=== PATIENT | female | born 1975 | race Caucasian/White ===

== ENCOUNTER 2017-09-18 08:34 | Day surgery (SDC) | payer MEDICAID, SELFPAY ==
[2017-09-18] VITALS (7 sets, daily range): BP systolic 104–141; BP diastolic 64–94; PULSE 51–70; RESP 16–18; TEMP 36.2–36.8; O2SAT 94–100; BMI 28.3
--- NOTE | 2017-09-18 02:33 | PCM.HPOB.BLA ---
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 Is patient in pain?: Yes Allergies No Known Allergies Allergy (Verified 06/18/17 08:40) Medications Rizatriptan Benzoate [Rizatriptan] 10 mg PO TID PRN PRN 07/26/16 [History Confirmed 06/18/17] Duloxetine Hcl [Cymbalta] 90 mg PO DAILY 09/13/16 [History Confirmed 06/18/17] baclofen 10 mg tablet 10 mg PO TID PRN 03/31/17 [History Confirmed 06/18/17] clonazepam 0.5 mg tablet 1 mg PO BID tab 03/31/17 [History Confirmed 06/18/17] dicyclomine 10 mg capsule 10 mg PO ACHS #60 cap 03/31/17 [Rx Confirmed 06/18/17] gabapentin 100 mg capsule 600 mg PO TID cap 03/31/17 [History Confirmed 06/18/17] ibuprofen 200 mg tablet 200 mg PO TID PRN #180 tab 03/31/17 [Rx Confirmed 06/18/17] loperamide 2 mg capsule 2 mg PO Q1-4H PRN #20 cap 03/31/17 [Rx Confirmed 06/18/17] valproic acid 250 mg capsule 250 mg PO TID 03/31/17 [History Confirmed 06/18/17] valsartan 160 mg tablet 160 mg PO QDAY 03/31/17 [History Confirmed 06/18/17] ondansetron HCl 4 mg tablet 4 mg PO Q4H 06/18/17 [History Confirmed 06/18/17] Is last menstrual period known: Yes Last Menstral Period: 05/22/17 Post menopausal: No Patient : No : No PFSH Medical History Anxiety and depression (Acute) Arthritis (Acute) Hypertension (Chronic) Surgical History History of ERCP (Acute) History of cholecystectomy (Acute) Family History Uncle Diabetes Aunt Diabetes Social History Smoking Status: Never smoker second hand exposure: No alcohol intake: never substance use type: does not use caffeine: No what type of physical activity do you participate in: none seatbelt use: always do you feel safe at home: Yes additional social history: single HPI SURGICAL CONSULT: Details: MIGUE HERNANDEZ is a 41 year old who presents for AUB- she has heavy painful periods and bleeding can last almost two weeks. She has always had this for many years and it seems to be stable, she had a normal pap smear and hasn't been on any hormonal therapy for this. ultrasound showed 5 mm lining, possible cervical polyp. she also needs a colonoscopy by dr ye. she is concerned because she doesn't have anyone to help her with transportation. Female Reproductive History Last Menstral Period: 05/22/17 Cycle Length: 21-35 Bleeding Duration: 10 Frequency of changing protection: double protection. changes few hrs Pregancy History 0 Elective abortions Hx Para Spontaneous abortions Hx # Term Pregnancies Ectopic pregnancies Hx # Pregnancies Multiple births # of living children ROS Const Constitutional: Denies poor appetite, headache(s), fever(s), increased appetite, weight gain, weight loss or fatigue Cardio Card: Denies chest pain Resp Resp: Denies dyspnea or cough GI GI: Reports as per HPI; denies vomiting, nausea, abdominal pain or constipation : Reports as per HPI; denies urinary urgency, vaginal discharge, urinary frequency, vaginal itching, vaginal odor, vaginal dryness, urinary incontinence, urinary hesitancy, difficulty urinating, painful urination or nipple discharge Skin Skin/Breast: Denies breast lump, breast pain, breast skin changes, nipple discharge or change in hair Exam Const General: cooperative, healthy appearing, comfortable, no acute distress, well developed Nutritional Appearance: average body habitus Orientation: alert [facility] Head: normal to inspection, normocephalic Neck Neck: normal visual inspection, trachea midline Thyroid: thyroid normal Resp Effort & Inspection: normal respiratory effort GI Inspection: normal to inspection, non-distended Palpation: soft, no hepatosplenomegaly Skin General: no rashes or lesions noted Assessment & Plan Problems 1. Abnormal uterine bleeding N93.9 Plan plan d and c hysteroscopy polypectomy mirena iud insertion try and coordinate with christian ye's office to have colonoscopy the same day I have discussed with the patient the risks, benefits, and alternatives of the procedure including risks of anesthesia, bleeding, infection, uterine perforation which could cause damage to bowel, bladder, or vasculature and lead to additional surgery to evaluate any complications. Medications Discontinued: pantoprazole Discontinued Reason: Order Completed 40 mg PO QAM Coding Level of Care Code Off vis,est,level 4 Diagnoses Abnormal uterine bleeding N93.9 UPDATE- I have seen the patient and performed any clinically relevant updates to the history and physical exam. Maggi Aguilar MD
[2017-09-18 09:06] LABS: Absolute Lymphocyte Count 2.56 X10^3/ul (0.83-4.51); Absolute Neutrophil Count 2.3 X10^3/uL (2.0-7.7); Basophil# 0.04 X10^3/uL; Basophil% 0.7 % (0-1); Eosinophil# 0.08 X10^3/uL; Eosinophils% 1.4 % (0-5); Hematocrit 34.1 % (37-47); Hemoglobin 11.9 g/dl (12.0-15.0); Lymphocyte # 2.56 X10^3/ul (4.0); Lymphocyte % 45.6 % (19-41); Mean Corp Hgb Conc 34.9 g/gl (32-36); Mean Corpuscular Hgb 31.6 pg (27.0-32.0); Mean Corpuscular Volume 90.5 fL (81-99); Mean Platelet Vol. 11.7 fl (6.2-12.0); Monocyte# 0.63 X10^3/uL; Monocyte% 11.2 % (0-10); Neutrophil # 2.31 X10^3/uL (2.7-7.7); Neutrophil % 41.1 % (47-70); Platelet Count 208 K/mm3 (150-450); RBC Distribution Width CV 13.6 % (11.6-14.6); RBC Distribution Width SD 43.8 fl (35.1-43.9); Red Blood Count 3.77 M/mm3 (4.2-5.4); White Blood Count 5.6 K/mm3 (4.4-11.0)
[2017-09-18 09:10] LABS: POSITIVE COUNT NO; POSITIVE DIFFERENTIAL NO; POSITIVE MORPHOLOGY NO
--- NOTE | 2017-09-18 10:24 | PCM.OPRPT ---
Problem List (1) Abnormal uterine bleeding Status: Acute Report of Operation Date of Procedure: 09/18/17 Pre-Operative Diagnosis: aub pelvic pain Post-Operative Diagnosis: same plus enodmetriosis Surgery/Procedure Performed:: d and c hysteroscopy polypectomy with myosure device and mirena IUD insertion Type of Anesthesia:: General Special Medications: iud Specimen's removed: emc Drains: none Estimated Blood Loss (mL): minimal Fluids Replaced: crystalloid Description of Procedure: Patient was taken in the operating room and was placed under general anesthesia was prepped and draped in normal sterile fashion in the dorsal lithotomy position. Bladder was drained of clear urine and SCDs were on preoperatively. Uterus was sounded and a uterine manipulator was placed after dilating. Attention was then paid to the abdominal portion of the procedure and the umbilicus was elevated with towel clamps and injected with Marcaine and after a 5 mm incision was made and the Veress needle was entered into the abdomen confirmed to be intra-abdominal with a low opening pressure of less than 5 mmHg. Abdomen was insufflated with CO2 gas and a 5 mm optical trocar was placed under direct visualization. A left lower quadrant 5 mm port placed under direct visualization. Uterus was well visualized and bilateral fallopian tubes identified and noted to be within normal limits. Small sigmoid to left pelvic sidewall adhesions were noted and taken down sharply. Several small endometriosis implants were noted and the cul-de-sacs which were ablated with monopolar electrocautery.. Excellent hemostasis was noted. Appendix, liver and upper abdomen were visualized notably within normal limits and no other gross abnormalities were seen in the abdomen. All instruments removed from the abdomen after gas was desufflated. Port sites were closed with 3-0 Monocryl Steri's and op sites were applied. A weighted speculum was placed in the vagina and the anterior lip of the cervix was grasped with a single-tooth tenaculum. A paracervical block was placed with 1% lidocaine. Cervix was progressively dilated to allow passage of a 5 mm hysteroscope. The lining was fully visualized and noted to have thickened lining and a small endocervical polyp. Uterine sounded to 8 cm. Using the myosure device, the polyp was prgoressively removed without complications. Direct visual curettage was performed using the device , and all specimens were sent to pathology. All instruments were removed from the vagina and excellent hemostasis was noted. dr ye was then called for her portion of the procedure Grafts/Implants Used: iud - Complications none
--- NOTE | 2017-09-18 10:25 | PCM.DC.D&C ---
Discharge Diet: No Restrictions Discharge Activity: Return to Normal Activity, May Shower, May Take a Tub Bath Allergies/Adverse Reactions: Allergies No Known Allergies Allergy (Verified 06/18/17 08:40) Medications to take at Discharge Duloxetine Hcl [Cymbalta] 90 mg PO DAILY 09/13/16 baclofen 10 mg tablet 10 mg PO TID 03/31/17 ibuprofen 200 mg tablet 200 mg PO TID PRN #180 tab 03/31/17 loperamide 2 mg capsule 2 mg PO Q1-4H PRN #20 cap 03/31/17 valproic acid 250 mg capsule 250 mg PO TID 03/31/17 ondansetron HCl 4 mg tablet 4 mg PO Q4H 06/18/17 dicyclomine 10 mg capsule 10 mg PO ACHS #120 cap 06/30/17 rizatriptan 10 mg tablet 10 mg PO BID PRN #20 tab 08/21/17 valsartan 160 mg tablet 160 mg PO QDAY #90 tab 08/27/17 Pregabalin [Lyrica] 100 mg PO BID 09/18/17 Primary Care Physician: Radha Farfan MD [Primary Care Provider] - Please Follow Up With: Maggi Aguilar MD - [phone] When: 1-2 weeks
--- NOTE | 2017-09-18 10:30 | EMB_PTH ---
PATIENT: MIGUE HERNANDEZ LOC: [facility] [place] U#:[id number] AGE/SX: 42/F ROOM: RE09/18/[address]: Dr. Maggi Aguilar MD : 1975 BED: DIS: 09/18/2017 SPEC #: [id number] RECD: 09/18/17 13:43 STATUS: ZAIDA RENathan #: [id number] EUGENIA: 09/18/17 10:[address]: Maggi Aguilar DEPT: SURGICAL PATHOLOGY RECD BY: Jairo Quigley ENTERED: 09/18/17 14:13 SP TYPE: ENDOM BX/C JEREMY DR: Dr. Radha Farfan MD Tissues: Endometrium, NOS Procedures: Surgery Specimen Level IV HEADER OPERATION: Diagnostic laparoscopy, hysteroscopy, ablation endometriosis PRE-OP DIAGNOSIS: Abnormal uterine bleeding, chronic pelvic pain TISSUE SUBMITTED: Endometrial curettings, polyp MICROSCOPIC DIAGNOSIS Endometrium, curettings and polyp: Polypoid fragments of proliferative endometrium with focal glandular breakdown. AM:anatoliy 09/19/17 MICROSCOPIC DESCRIPTION Slides are reviewed. GROSS DESCRIPTION Received in fixative is one container labeled with the patient's name and designated endometrial curettings, polyp. The specimen consists of multiple pieces of marmolejo-pink soft tissue mixed with blood clot that in aggregate measure 5 x 3 x 0.3 cm. The specimen is submitted in two cassettes. / SJ:anatoliy 09/18/17 TC:5 CPT: 28767
[2017-09-18] MEDS: Bupivacaine 0.25% 30 ML Vial (11:50)
--- NOTE | 2017-09-18 12:37 | COLBX_PTH ---
PATIENT: MIGUE HERNANDEZ LOC: [facility] [place] U#:[id number] AGE/SX: 42/F ROOM: RE09/18/[address]: Dr. Maggi Aguilar MD : 1975 BED: DIS: 09/18/2017 SPEC #: [id number] RECD: 09/18/17 15:11 STATUS: ZAIDA GRIMALDO #: [id number] EUGENIA: 09/18/17 12:[address]: Maggi Aguilar DEPT: SURGICAL PATHOLOGY RECD BY: Jairo Quigley ENTERED: 09/19/17 14:03 SP TYPE: COLON BX OTHR DR: Dr. Radha Farfan MD Tissues: Rectum, NOS Procedures: Surgery Specimen Level IV HEADER OPERATION: Colonoscopy PRE-OP DIAGNOSIS: Constipation and abdomen pain TISSUE SUBMITTED: Rectal polyp biopsy MICROSCOPIC DIAGNOSIS Rectal polyp, biopsy: Fragments of tubular adenoma. AM:anatoliy 09/26/17 MICROSCOPIC DESCRIPTION Slides are reviewed. GROSS DESCRIPTION Received in fixative is one container labeled with the patient's name and designated rectal polyp biopsy. The specimen consists of multiple irregular fragments of light marmolejo soft tissue that in aggregate measure 0.5 x 0.3 x 0.1 cm. The specimen is totally submitted in one cassette. / AM:anatoliy 09/19/17 TC:5 CPT: 87685
[2017-09-18] MEDS: HYDROcodone Bitartrate/Apap 5/325 Tablet PO (14:02)
--- NOTE | 2017-09-18 18:11 | OP.PCM_ITS ---
Report of Operation Date of Procedure: 09/18/17 Pre-Operative Diagnosis: constipation and abdominal pain Post-Operative Diagnosis: rectal polyp Surgery/Procedure Performed:: colonoscopy with biopsies Description of Surgical Findings:: no masses noted, small mucosal abnormality of the rectum - biopsied with cold grasper forceps Type of Anesthesia:: General Anesthesiologist: Zoila Santos Specimen's removed: rectal mucosal biopsy Drains: none Estimated Blood Loss (mL): minimal Fluids Replaced: see anesthesia note Description of Procedure: Patient has given informed consent for this procedure, patient was brought to the Operating Room. Appropriate time out protocol was followed. Endoscopy was done after Dr. Aguilar's procedures. The patient was then placed in the left lateral decubitis position. The colonoscope was lubricated and carefully inserted into the patient?s anus. It was then advanced into the rectum, then into the sigmoid colon, then into the left descending colon, past the splenic flexure, into the transverse colon, past the hepatic flexure, then down into the right descending colon and into the cecum. The cecum was identified by: transillumination, confluence of the tenae coli, identification of the ileocecal valve and appendiceal orifice, and external pressure with indentation. At this point, the colonoscope was slowly retracted back and the entire colonic mucosa was examined. The colon cleansing preparation was adequate. There was no evidence of extrinsic compression and no inflammatory changes were noted. No intraluminal obstructing lesions, no strictures, and no ulcers were noted. Retroflex view in the rectum revealed a small, < 1 cm, mucosal nodularity that was removed completely using cold grasper forceps. Also hemorrhoidal changes were noted. The colonoscope was removed intact. Patient tolerated procedure well. - Complications none noted - Admit VTE Documentation VTE Present on Admission: Yes
== END 2017-09-18 14:47 | disposition home or self-care (01) ==
LOC: SDC 08:35 → AC 08:37
PROVIDERS: Surgery; Family Provider Internal Medicine; PCP Internal Medicine; Visit Provider Obstetrics & Gynecology
PROC: 0UDB8ZZ Extraction of Endometrium, Via Natural or Artificial Opening Endoscopic (ICD-10-PCS; CPT 58558; principal; 2017-09-18 10:15)
PROC: 0DJD8ZZ Inspection of Lower Intestinal Tract, Via Natural or Artificial Opening Endoscopic (ICD-10-PCS; CPT 45378; principal; 2017-09-18 10:55)
DX: N84.1 Polyp of cervix uteri (principal); K62.1 Rectal polyp; N93.9 Abnormal uterine and vaginal bleeding, unspecified; R10.2 Pelvic and perineal pain; G89.29 Other chronic pain; I10 Essential (primary) hypertension; G47.30 Sleep apnea, unspecified; M79.7 Fibromyalgia; Z90.49 Acquired absence of other specified parts of digestive tract
CPT/HCPCS: 45380; 58300; 58558; 36415; 85025; 86850; 86900; 88305; 93005; J7120; J2405

== ENCOUNTER 2017-09-22 23:10 | Emergency (ER) | payer MEDICAID, SELFPAY ==
--- NOTE | 2017-09-22 23:10 | DT_ITS ---
This patient was seen during an EMR downtime September 22, 2017 - September 29, 2017. This patient may have a combination of paper and electronic documentation or all paper documentation. All documentation is viewable within the e-chart portion of [employer] for each patient visit.
== END 2017-09-23 02:20 | disposition home or self-care (01) ==
LOC: ED 09-24 16:19
PROVIDERS: Emergency Provider Emergency Medicine; Family Provider Internal Medicine; PCP Internal Medicine
DX: R10.13 Epigastric pain (principal); G89.29 Other chronic pain; I10 Essential (primary) hypertension; F32.9 Major depressive disorder, single episode, unspecified; F41.9 Anxiety disorder, unspecified; Z79.899 Other long term (current) drug therapy
CPT/HCPCS: 96372; 99282

== ENCOUNTER → 2017-10-29 18:06 | Outpatient (CLI) | payer MEDICAID, SELFPAY ==
--- NOTE | 2017-10-29 18:09 | US_ITS ---
STUDY: ULTRASOUND OF THE FEMALE PELVIS - COMPLETE REASON FOR EXAM: Female, 42 years old. Pain left greater than right pelvis LMP: September 15, 2014 TECHNIQUE: Transabdominal and Transvaginal TECHNICAL QUALITY: Adequate. April 04, 2017 COMPARISON: None. FINDINGS: The uterus is anteverted and is tilted to the right side of the pelvis. The uterus measures 2.3 x 5.7 x 3.4 cm. Normal uterine cervix. There is an echogenic nodule on the right of the cervix measuring 1.4 x 1.2 x 0.9 cm grossly unchanged. The endometrium measures 3 mm in thickness, and is hyperechoic. There is no demonstrated endometrial mass. There is no demonstrated myometrial mass. I.U.D. - The patient does have an I.U.D. The right ovary is visualized. The right ovary measures 3.2 x 2.3 x 1.9 cm. 1.4 x 1.5 x 1.4 cm simple cyst. There is no visualized right adnexal mass or complex lesion. There is normal arterial and normal venous vascularity. The left ovary is visualized. The left ovary measures 2.4 x 1.5 x 1.1 cm. There is no left ovarian cyst or ovarian mass. There is no visualized left adnexal mass or complex lesion. There is normal arterial and normal venous vascularity. There is no fluid in the cul-de-sac. The pre void volume of the bladder was 172 ml. Polycystic ovary disease: No. US/Pelvic (Non ) IMPRESSION: IUD. Probable cervical polyp. Simple right ovarian cyst without evidence of torsion. Electronically Signed: Jerome Meng MD at 0:39 EDT , Service support ,
--- NOTE | 2017-10-29 18:30 | US_ITS ---
STUDY: ULTRASOUND OF THE FEMALE PELVIS - COMPLETE REASON FOR EXAM: Female, 42 years old. Pain left greater than right pelvis LMP: September 15, 2014 TECHNIQUE: Transabdominal and Transvaginal TECHNICAL QUALITY: Adequate. April 04, 2017 COMPARISON: None. FINDINGS: The uterus is anteverted and is tilted to the right side of the pelvis. The uterus measures 2.3 x 5.7 x 3.4 cm. Normal uterine cervix. There is an echogenic nodule on the right of the cervix measuring 1.4 x 1.2 x 0.9 cm grossly unchanged. The endometrium measures 3 mm in thickness, and is hyperechoic. There is no demonstrated endometrial mass. There is no demonstrated myometrial mass. I.U.D. - The patient does have an I.U.D. The right ovary is visualized. The right ovary measures 3.2 x 2.3 x 1.9 cm. 1.4 x 1.5 x 1.4 cm simple cyst. There is no visualized right adnexal mass or complex lesion. There is normal arterial and normal venous vascularity. The left ovary is visualized. The left ovary measures 2.4 x 1.5 x 1.1 cm. There is no left ovarian cyst or ovarian mass. There is no visualized left adnexal mass or complex lesion. There is normal arterial and normal venous vascularity. There is no fluid in the cul-de-sac. The pre void volume of the bladder was 172 ml. Polycystic ovary disease: No. US/Transvaginal Non- IMPRESSION: IUD. Probable cervical polyp. Simple right ovarian cyst without evidence of torsion. Electronically Signed: Jerome Meng MD at 0:39 EDT , Service support ,
[2017-10-29 19:19] LABS: Absolute Lymphocyte Count 2.25 X10^3/ul (0.83-4.51); Absolute Neutrophil Count 3.3 X10^3/uL (2.0-7.7); Basophil# 0.01 X10^3/uL; Basophil% 0.2 % (0-1); Eosinophil# 0.09 X10^3/uL; Eosinophils% 1.4 % (0-5); Hematocrit 36.1 % (37-47); Lymphocyte # 2.25 X10^3/ul (4.0); Lymphocyte % 34.9 % (19-41); Mean Corp Hgb Conc 33.2 g/gl (32-36); Mean Corpuscular Volume 93.3 fL (81-99); Mean Platelet Vol. 11.4 fl (6.2-12.0); Monocyte# 0.79 X10^3/uL; Monocyte% 12.2 % (0-10); Neutrophil % 51.1 % (47-70); Platelet Count 239 K/mm3 (150-450); RBC Distribution Width CV 14.7 % (11.6-14.6); RBC Distribution Width SD 49.9 fl (35.1-43.9); Red Blood Count 3.87 M/mm3 (4.2-5.4); White Blood Count 6.5 K/mm3 (4.4-11.0)
[2017-10-29 19:21] LABS: POSITIVE COUNT NO; POSITIVE DIFFERENTIAL NO; POSITIVE MORPHOLOGY NO
== END ==
PROVIDERS: Family Provider Internal Medicine; PCP Internal Medicine; Visit Provider Nurse Practitioner Women's Health
DX: R10.2 Pelvic and perineal pain (principal)
CPT/HCPCS: 76830; 76856; 85025; 93976

== ENCOUNTER → 2019-05-28 | Outpatient (CLI) | payer MEDICARE, SELFPAY ==
[2019-03-17 17:45] VITALS: BMI 41.1
--- NOTE | 2019-05-28 17:13 | MRI_ITS ---
STUDY: MRI LUMBAR SPINE WITHOUT CONTRAST REASON FOR EXAM: Female, 43 years old. No back pain leg leg pain for 10 years TECHNIQUE: Standardized fat and water weighted pulse sequences were obtained in the sagittal and axial planes. COMPARISON: 12 February 2017, 04 October 2016 FINDINGS: There is mild levoscoliosis. There is grade 1 degenerative anterolisthesis of L3 on L4, less than 2 mm. The rest of the spine is aligned. Vertebral bodies are intact with normal marrow and chronic degenerative subchondral change at L3-L4 and L4-L5 and disc degeneration at L3-L4. Paraspinous soft tissues are intact. There is severe elevation of BMI and mixed intra-abdominal and extra abdominal lipomatosis. Aorta is of normal caliber. Conus medullaris terminates at T12-L1 with normal cauda equina. Thecal sac is patent at all levels. There is multilevel mild foraminal stenosis. There is mild left L4-L5 lateral recess stenosis. Appearance is similar to prior. MRI/Spine Lumbar (Routine) IMPRESSION: 1. Patent thecal sac, no neural compression. 2. Accelerated spondylosis. 3. Severe elevated BMI, related to above. Electronically Signed: Anel Lamas, at 16:32 EST Tel , Service support ,
== END | disposition home or self-care (01) ==
PROVIDERS: Family Provider Internal Medicine; PCP Internal Medicine; Referring Provider Anesthesiology Pain Medicine; Visit Provider Anesthesiology Pain Medicine
DX: M54.5 Low back pain (principal); M79.605 Pain in left leg
CPT/HCPCS: 72148

== ENCOUNTER 2021-05-17 12:20 | Outpatient (CLI) | payer MEDICARE, SELFPAY ==
[2021-05-17 13:06] LABS: Absolute Lymphocyte Count 2.14 X10^3/uL (0.83-4.51); Absolute Neutrophil Count 6.2 X10^3/uL (2.0-7.7); Basophil# 0.04 X10^3/uL; Basophil% 0.4 % (0-1); Eosinophil# 0.12 X10^3/uL; Eosinophils% 1.3 % (0-5); Hematocrit 37.9 % (37-47); Lymphocyte # 2.14 X10^3/ul (0.83-4.51); Lymphocyte % 23.2 % (19-41); Mean Corp Hgb Conc 31.7 g/dL (32-36); Mean Corpuscular Hgb 30.2 pg (27.0-32.0); Mean Corpuscular Volume 95.2 fL (81-99); Mean Platelet Vol. 11.1 fl (6.2-12.0); Monocyte% 7.6 % (0-10); NRBC Flagged by Analyzer 0 % (0-5); Neutrophil # 6.19 X10^3/uL (2.7-7.7); Neutrophil % 67.2 % (47-70); Platelet Count 283 K/mm3 (150-450); RBC Distribution Width CV 14.1 % (11.6-14.6); RBC Distribution Width SD 49.1 fl (35.1-43.9); Red Blood Count 3.98 M/mm3 (4.2-5.4); White Blood Count 9.2 K/mm3 (4.4-11.0)
[2021-05-17 13:37] LABS: Insulin 50.7 mU/L (2.6-37.6); Vitamin B12 249 pg/mL (211-911)
[2021-05-17 13:50] LABS: AST(SGOT) 12 U/L (15-37); Alanine Aminotransfer ALT/SGPT 19 U/L (13-56); Albumin, Serum 3.5 g/dL (3.2-5.0); Alkaline Phosphatase 115 U/L (45-117); Anion Gap 6 (5-15); BUN 12 mg/dL (7-18); BUN/Creat Ratio 15.5 RATIO (10-20); Calcium,Total 8.5 mg/dL (8.5-10.1); Chloride 109 mmol/L (98-107); Creatinine, Serum 0.77 mg/dL (0.55-1.02); EST Glomerular Filtration Rate 85 mL/min (>60); Est Glom Filt Rate - Afr Amer 102 mL/min (>60); Follicle Stimulating Hormone 4.5 mIU/mL; Globulin 3.6 g/dL (2.2-4.2); Glucose 92 mg/dL (74-106); Luteinizing Hormone 3.5 mIU/mL; Prolactin 20.1 ng/mL; Protein, Total 7.1 g/dL (6.4-8.2); Sodium Level 140 mmol/L (136-145)
[2021-05-23 10:08] LABS: Testosterone, % Free 2.65 % (0.50-2.80); Testosterone, Free 0.53 ng/dL (0.10-0.85); Testosterone, Total 20 ng/dL (4-50)
[2021-05-23 13:16] LABS: Thyroid Peroxidase AB < 8 IU/mL (0-34)
[2021-05-25 16:25] LABS: 17-Hydroxyprogesterone 43 ng/dL (.)
== END 2021-05-17 23:59 | disposition short-term general hospital (02) ==
LOC: LAB 12:24
PROVIDERS: Referring Provider Nurse Practitioner Adult Health; Visit Provider Nurse Practitioner Adult Health
DX: L68.0 Hirsutism (principal)
CPT/HCPCS: 36415; 80053; 82607; 82627; 83001; 83002; 83498; 83525; 84146; 84402; 84403; 85025; 86376; 86900; 86901; 82626

== ENCOUNTER 2021-05-23 10:12 | Outpatient (CLI) | payer MEDICARE, SELFPAY ==
[2021-05-23 11:21] LABS: Vitamin D,25 Hydroxy 28.3 ng/mL
[2021-05-23 11:27] LABS: Cholesterol 182 mg/dL (200); High Density Lipoprotein 30 mg/dL; Iron 86 ug/dL (50-170); Iron Binding Capacity,Total 351 ug/dL (250-450); T4 Free Direct 0.67 ng/dL (0.76-1.46); Thyroid Stim Hormone (TSH) 1.22 uIU/mL (0.358-3.74); Triglycerides 329 mg/dL; Very Low Density Lipoprotein 66 mg/dL (5-40)
== END 2021-05-23 23:59 | disposition short-term general hospital (02) ==
LOC: LAB 10:14
PROVIDERS: Referring Provider Nurse Practitioner Adult Health; Visit Provider Nurse Practitioner Adult Health
DX: R53.83 Other fatigue (principal); D64.9 Anemia, unspecified; E55.9 Vitamin D deficiency, unspecified; I10 Essential (primary) hypertension
CPT/HCPCS: 36415; 80061; 82306; 83540; 83550; 84439; 84443

== ENCOUNTER 2021-07-09 16:43 | Outpatient (CLI) | payer MEDICARE, SELFPAY ==
[2021-07-13 15:49] LABS: HPV APTIMA, High Risk Negative (Negative)
== END 2021-07-09 23:59 | disposition home or self-care (01) ==
LOC: LABSPEC 16:45
PROVIDERS: Referring Provider Nurse Practitioner Women's Health; Visit Provider Nurse Practitioner Women's Health
DX: Z12.4 Encounter for screening for malignant neoplasm of cervix (principal)
CPT/HCPCS: 87624; 88175; G0145

== ENCOUNTER 2021-07-18 14:31 | Outpatient (CLI) | payer MEDICARE, SELFPAY ==
--- NOTE | 2021-07-18 14:34 | US_ITS ---
STUDY: ULTRASOUND OF THE FEMALE PELVIS - COMPLETE REASON FOR EXAM: Female, 45 years old. Pain - TA only per order LMP: TECHNIQUE: Transabdominal TECHNICAL QUALITY: Adequate. COMPARISON: Comparison is made with prior study dated 10/29/2017. FINDINGS: The uterus is anteverted and is in a midline position. The uterus measures 8.9 cm x 4.6 cm x 4 cm. Normal uterine cervix. The endometrium measures 2.4 mm in thickness, and is hyperechoic. There is no demonstrated endometrial mass. There is a 1.9 cm x 1.5 x 1.8 cm well-defined echogenic nodule in the lower uterine segment and cervical region of the uterus . This may represent a fibroid. I.U.D. - The patient does have an I.U.D. The right ovary is non-visualized. The left ovary is visualized. The left ovary measures 3.4 cm x 2.4 cm x 2.6 cm. There is a 2.4 cm x 1.7 cm x 1.6 cm cyst in the ovary. There is no visualized left adnexal mass or complex lesion. There is normal arterial and normal venous vascularity. There is no fluid in the cul-de-sac. The pre void volume of the bladder was 160 ml. US/Pelvic (Non ) IMPRESSION: IUD is seen within the endometrium. 1.9 cm x 1.8 cm x 1.8 cm well-defined echogenic nodule in the lower uterine segment/cervical portion of the uterus. 2.4 cm x 1.7 cm x 1.6 cm left ovarian cyst. Electronically Signed: Ivan Pinon MD at 11:10 EDT ,
--- NOTE | 2021-07-18 14:34 | BI_ITS ---
MAMMOGRAPHY - BILATERAL SCREENING REASON FOR EXAM: Female, 45 years old. Routine annual screening examination. PERTINENT HISTORY: Non-contributory. Occasional right milky breast discharge. TECHNIQUE: Digital bilateral breast anju (3D mammographic acquisition) in the CC and MLO projections. 2-D mediolateral oblique (MLO) and craniocaudad (CC) views of both breasts were obtained. CAD: Full Field Digital Mammography with Computer Added Detection was performed. COMPARISON: Comparison is made with prior study dated 04/29/2017. FINDINGS: Breast Composition: The breasts are heterogeneously dense, which may obscure small masses. There are no dominant masses or suspicious calcifications. Stable benign appearing bilateral axillary nodes. No other significant abnormalities are identified. There has been no significant change since the prior study. BI/SCRN MAMM (CAD)W/ANJU BILAT IMPRESSION: Stable bilateral screening mammogram. Yearly follow-up mammogram recommended. (A) ASSESSMENT CATEGORY: BIRADS Category 2: Benign. A letter regarding these results will be sent to the patient by the facility within 30 days. Approximately 10% of breast cancers are not detected by mammography. A normal mammogram should not delay biopsy of a clinically suspicious abnormality. [id number] Electronically Signed: Ivan Pinon MD at 15:52 EDT ,
== END 2021-07-18 23:59 | disposition home or self-care (01) ==
PROVIDERS: Visit Provider Nurse Practitioner Women's Health
DX: Z12.31 Encounter for screening mammogram for malignant neoplasm of breast (principal); N80.9 Endometriosis, unspecified; R10.2 Pelvic and perineal pain; G89.29 Other chronic pain
CPT/HCPCS: 76856; 77063; 77067

== ENCOUNTER → 2021-08-13 | Outpatient (CLI) | payer MEDICARE, SELFPAY ==
[2021-08-17 12:46] LABS: Testosterone Free 0.7 pg/mL (0.0-4.2)
[2021-08-19 18:14] LABS: 17-Hydroxyprogesterone 22 ng/dL (.)
== END | disposition home or self-care (01) ==
LOC: LAB 17:24
PROVIDERS: Referring Provider Obstetrics & Gynecology; Visit Provider Obstetrics & Gynecology
DX: L68.0 Hirsutism (principal)
CPT/HCPCS: 36415; 82627; 83498; 84402; 82626

== ENCOUNTER → 2021-10-16 | Outpatient (CLI) | payer MEDICARE, SELFPAY ==
[2021-10-16 11:08] LABS: Vitamin B12 295 pg/mL (211-911)
[2021-10-18 16:00] LABS: Vitamin D 1,25-Dihydroxy 52.9 pg/mL (24.8-81.5)
== END | disposition home or self-care (01) ==
PROVIDERS: Referring Provider Nurse Practitioner Adult Health; Visit Provider Nurse Practitioner Adult Health
DX: E55.9 Vitamin D deficiency, unspecified (principal); E53.9 Vitamin B deficiency, unspecified
CPT/HCPCS: 36415; 82607; 82652

== ENCOUNTER → 2022-11-06 | Outpatient (CLI) | payer MEDICARE, SELFPAY ==
--- NOTE | 2022-11-06 17:18 | RAD_ITS ---
INDICATION: PAIN EXAMINATION/TECHNIQUE: X-RAY - RIGHT XR Shoulder 4 VIEWS COMPARISON: FINDINGS: SOFT TISSUES: No soft tissue swelling or gas. No radiopaque foreign body. BONES/JOINTS: No acute fracture or subluxation.. Degenerative hypertrophy at the acromioclavicular articulation.. No sclerotic or destructive changes observed. RAD/Shoulder min 2 Views IMPRESSION: No acute bony injury. Electronically Signed: Farhat Burrell DO at 23:02 EDT ,
== END | disposition home or self-care (01) ==
LOC: MTRAD 17:16
PROVIDERS: Visit Provider Nurse Practitioner Acute Care
DX: M25.511 Pain in right shoulder (principal)
CPT/HCPCS: 73030

== ENCOUNTER → 2022-11-19 | Outpatient (CLI) | payer MEDICARE, SELFPAY ==
--- NOTE | 2022-11-19 15:50 | RAD_ITS ---
INDICATION: PLEURODYNIA EXAMINATION/TECHNIQUE: X-RAY - XR Ribs Unilateral 4 Views COMPARISON: FINDINGS: SOFT TISSUES: No soft tissue swelling or gas. BONES: No displaced fracture. No sclerotic or destructive changes observed. VISUALIZED LUNGS: Clear. No pneumothorax. RAD/Ribs Unil 2V No CXR IMPRESSION: No evidence of displaced rib fracture. Electronically Signed: Farhat Burrell DO at 20:21 EDT ,
[2022-11-19 15:54] LABS: Absolute Lymphocyte Count 2.19 X10^3/uL (0.83-4.51); Absolute Neutrophil Count 5.5 X10^3/uL (2.0-7.7); Basophil# 0.05 X10^3/uL; Basophil% 0.6 % (0-1); Eosinophil# 0.15 X10^3/uL; Eosinophils% 1.8 % (0-5); Hematocrit 38.7 % (37-47); Hemoglobin 12.9 g/dL (12.0-15.0); Lymphocyte # 2.19 X10^3/ul (0.83-4.51); Lymphocyte % 25.9 % (19-41); Mean Corp Hgb Conc 33.3 g/dL (32-36); Mean Corpuscular Hgb 30.5 pg (27.0-32.0); Mean Corpuscular Volume 91.5 fL (81-99); Mean Platelet Vol. 10.8 fl (6.2-12.0); Monocyte# 0.52 X10^3/uL; Monocyte% 6.2 % (0-10); NRBC Flagged by Analyzer 0 % (0-5); Neutrophil # 5.52 X10^3/uL (2.7-7.7); Neutrophil % 65.3 % (47-70); Platelet Count 264 K/mm3 (150-450); RBC Distribution Width CV 13.9 % (11.6-14.6); RBC Distribution Width SD 46.8 fl (35.1-43.9); Red Blood Count 4.23 M/mm3 (4.2-5.4); White Blood Count 8.5 K/mm3 (4.4-11.0)
[2022-11-19 16:46] LABS: ALB/GLOB Ratio 0.9 RATIO (0.9-2.4); AST(SGOT) 14 U/L (15-37); Alanine Aminotransfer ALT/SGPT 25 U/L (13-56); Albumin, Serum 3.4 g/dL (3.2-5.0); Alkaline Phosphatase 115 U/L (45-117); Anion Gap 6 (5-15); BUN 18 mg/dL (7-18); BUN/Creat Ratio 18.5 RATIO (10-20); Calcium,Total 8.5 mg/dL (8.5-10.1); Chloride 108 mmol/L (98-107); Creatinine, Serum 0.97 mg/dL (0.55-1.02); EST Glomerular Filtration Rate 65 mL/min (>60); Est Glom Filt Rate - Afr Amer 78 mL/min (>60); Globulin 3.6 g/dL (2.2-4.2); Glucose 97 mg/dL (74-106); Potassium 3.3 mmol/L (3.5-5.1); Sodium Level 138 mmol/L (136-145)
== END | disposition home or self-care (01) ==
PROVIDERS: Referring Provider Nurse Practitioner Family; Visit Provider Nurse Practitioner Family
DX: R53.83 Other fatigue (principal); R07.81 Pleurodynia
CPT/HCPCS: 36415; 71100; 80053; 84443; 85025

== ENCOUNTER → 2022-12-25 | Outpatient (CLI) | payer MEDICARE, MEDICAID, SELFPAY ==
--- NOTE | 2022-12-25 07:14 | MRI_ITS ---
STUDY: MRI RIGHT SHOULDER REASON FOR EXAM: Female, 47 years old. Injury with pain and decreased range of motion for 2 months. TECHNIQUE: Standardized fat and water weighted pulse sequences were obtained in all 3 orthogonal planes. COMPARISON: Shoulder x-rays dated November 06, 2022. FINDINGS: Minimal supraspinatus, infraspinatus and subscapularis tendinosis. No partial thickness or full thickness tears (coronal series 5 images 2-12, axial series 2 images 8-15). Normal teres minor tendon. Normal supraspinatus muscle. Normal infraspinatus muscle. Normal subscapularis muscle. Normal teres minor muscle. Mild thinning of the articular cartilage of the glenohumeral joint with a small glenohumeral joint effusion (axial series 2 images 7-12). Normal humeral head and visualized proximal humerus. Normal biceps labral complex. Normal intracapsular long biceps tendon. Normal labrum. Normal capsulo- ligamentous complex. Normal rotator interval. Small AC joint effusion with AC joint hypertrophy and narrowing of the subacromial space (coronal series 5 images 10-14). There is a Type II morphology (curved), with a neutral orientation. Small amount of fluid in the subacromial-subdeltoid bursa (coronal series 6 images 5-8). Normal visualized coracohumeral and coracoacromial ligaments. Normal quadrilateral space. Normal axillary space. Normal deltoid muscle. Normal trapezius muscle. MRI/Upper Ext Joint Only(Routine) IMPRESSION: Supraspinatus, infraspinatus and subscapularis tendinosis without a partial-thickness or full-thickness tear. Mild arthrosis of the glenohumeral joint. Small AC joint effusion with AC joint hypertrophy resulting in minimal narrowing of the subacromial space. Small glenohumeral joint effusion with a small amount of fluid in the subacromial-subdeltoid bursa. Electronically Signed: Bib Alonzo MD at 9:44 EDT ,
== END | disposition home or self-care (01) ==
DX: M25.511 Pain in right shoulder (principal)
CPT/HCPCS: 73221

== ENCOUNTER → 2023-07-14 | Outpatient (CLI) | payer MEDICARE, MEDICAID, SELFPAY ==
--- NOTE | 2023-07-14 13:18 | RAD_ITS ---
EXAM: XR RIGHT CLAVICLE COMPLETE, 2 OR MORE VIEWS CLINICAL INDICATION: PAIN TECHNIQUE: Frontal and lordotic views of the right clavicle. COMPARISON: No relevant prior studies available. FINDINGS: BONES/JOINTS: Unremarkable. No acute fracture. No subluxation. Normal alignment. Preservation of the joint space. No sclerotic or destructive changes observed. SOFT TISSUES: Unremarkable. No soft tissue swelling or gas. No radiopaque foreign body. RAD/Clavicle IMPRESSION: Negative right clavicle x-rays. Electronically Signed: Donaldo Cerda MD at 23:57 EDT ,
--- NOTE | 2023-07-14 13:18 | RAD_ITS ---
EXAM: XR CERVICAL SPINE, 4 OR 5 VIEWS CLINICAL INDICATION: CERVALGIA TECHNIQUE: Frontal, lateral and bilateral oblique views of the cervical spine. COMPARISON: No relevant prior studies available. FINDINGS: VERTEBRAE: Unremarkable. Preserved vertebral body height. No acute fracture. No spondylolisthesis. Preservation of the normal cervical lordosis. No significant facet arthropathy. DISC SPACES: Unremarkable. Disc spaces are maintained. SOFT TISSUES: Unremarkable. No prevertebral soft tissue widening. LUNG APICES: Clear. RAD/Cerv Spine 4 or 5 Views IMPRESSION: No evidence of acute fracture or spondylolisthesis. Electronically Signed: Donaldo Cerda MD at 23:58 EDT ,
[2023-07-14 15:36] LABS: Absolute Lymphocyte Count 2.76 X10^3/uL (0.83-4.51); Absolute Neutrophil Count 3.4 X10^3/uL (2.0-7.7); Basophil# 0.06 X10^3/uL; Basophil% 0.8 % (0-1); Eosinophil# 0.15 X10^3/uL; Eosinophils% 2.1 % (0-5); Hematocrit 40.3 % (37-47); Hemoglobin 12.6 g/dL (12.0-15.0); Lymphocyte # 2.76 X10^3/ul (0.83-4.51); Lymphocyte % 38.9 % (19-41); Mean Corp Hgb Conc 31.3 g/dL (32-36); Mean Corpuscular Hgb 30.1 pg (27.0-32.0); Mean Corpuscular Volume 96.2 fL (81-99); Mean Platelet Vol. 10.5 fl (6.2-12.0); Monocyte% 9.9 % (0-10); NRBC Flagged by Analyzer 0 % (0-5); Neutrophil # 3.39 X10^3/uL (2.7-7.7); Neutrophil % 47.9 % (47-70); Platelet Count 304 K/mm3 (150-450); RBC Distribution Width CV 13.5 % (11.6-14.6); RBC Distribution Width SD 47.9 fl (35.1-43.9); Red Blood Count 4.19 M/mm3 (4.2-5.4); White Blood Count 7.1 K/mm3 (4.4-11.0)
[2023-07-14 16:05] LABS: Insulin 40.4 mU/L (2.6-37.6); Vitamin D,25 Hydroxy 35.2 ng/mL
[2023-07-14 16:28] LABS: AST(SGOT) 15 U/L (15-37); Alanine Aminotransfer ALT/SGPT 19 U/L (13-56); Albumin, Serum 3.4 g/dL (3.2-5.0); Alkaline Phosphatase 95 U/L (45-117); Anion Gap 3 (5-15); BUN 15 mg/dL (7-18); BUN/Creat Ratio 16.4 RATIO (10-20); Calcium,Total 8.4 mg/dL (8.5-10.1); Chloride 115 mmol/L (98-107); Creatinine, Serum 0.92 mg/dL (0.55-1.02); EST Glomerular Filtration Rate 69 mL/min (>60); Est Glom Filt Rate - Afr Amer 83 mL/min (>60); Globulin 3.4 g/dL (2.2-4.2); Glucose 96 mg/dL (74-106); Luteinizing Hormone 0.9 mIU/mL; Potassium 4.3 mmol/L (3.5-5.1); Protein, Total 6.8 g/dL (6.4-8.2); Sodium Level 141 mmol/L (136-145); T4 Free Direct 0.84 ng/dL (0.76-1.46); Thyroid Stim Hormone (TSH) 1.85 uIU/mL (0.358-3.74)
== END | disposition home or self-care (01) ==
LOC: LAB 07-07 11:33 → MTLAB 13:16
PROVIDERS: Referring Provider Clinical Nurse Specialist Adult Health; Visit Provider Clinical Nurse Specialist Adult Health
DX: I10 Essential (primary) hypertension (principal); E28.2 Polycystic ovarian syndrome; E55.9 Vitamin D deficiency, unspecified; M54.2 Cervicalgia; M25.511 Pain in right shoulder
CPT/HCPCS: 36415; 72050; 73000; 80053; 82306; 83001; 83002; 83525; 84439; 84443; 85025

== ENCOUNTER 2023-08-18 18:37 | Emergency (ER) | payer MEDICAID, MEDICARE, SELFPAY ==
[2023-08-18 18:39] VITALS: BP 133/103; PULSE 81; RESP 22; TEMP 36.6; O2SAT 96; BMI 37.8
--- NOTE | 2023-08-18 19:15 | RAD_ITS ---
EXAM: XR PELVIS, 1 OR 2 VIEWS CLINICAL INDICATION: pelvic pain TECHNIQUE: Frontal view of the pelvis. COMPARISON: No relevant prior studies available. FINDINGS: BONES/JOINTS: Mild degenerative changes in the lower lumbar spine and mild to moderate degenerative changes of the bilateral hips. No displaced fracture. No destructive or sclerotic lesions. Note that overlapping bowel shadows may however obscure fine detail. Sacroiliac joints are unremarkable. No widening of the pubic symphysis. SOFT TISSUES: No significant abnormality. No soft tissue swelling or gas. OTHER FINDINGS: IUD present. RAD/Pelvis 1 or 2 Views IMPRESSION: Mild degenerative changes in the lower lumbar spine and mild to moderate degenerative changes of the bilateral hips. No acute osseous findings. Electronically Signed: Hraesh Ponce DO at 20:48 EDT ,
--- NOTE | 2023-08-18 19:15 | RAD_ITS ---
EXAM: XR RIGHT ANKLE COMPLETE, 3 OR MORE VIEWS CLINICAL INDICATION: pain TECHNIQUE: Frontal, lateral and oblique views of the right ankle. COMPARISON: No relevant prior studies available. FINDINGS: BONES/JOINTS: Calcaneal spurs. No acute fracture. No subluxation. Normal alignment. Preservation of the joint space. No sclerotic or destructive changes observed. SOFT TISSUES: Soft tissue swelling at the ankle. No radiopaque foreign body. RAD/Ankle min 3 Views IMPRESSION: Soft tissue swelling at the ankle. No evidence of an acute fracture or dislocation. Electronically Signed: Haresh Ponce DO at 20:47 EDT ,
--- NOTE | 2023-08-18 19:15 | RAD_ITS ---
EXAM: XR LEFT KNEE COMPLETE, 4 OR MORE VIEWS CLINICAL INDICATION: pain TECHNIQUE: Four or more views of the left knee. COMPARISON: No relevant prior studies available. FINDINGS: BONES/JOINTS: Mild osteophytosis at the margins of the patellofemoral weightbearing compartments. Patellar enthesophytes. No acute fracture. No subluxation. Normal alignment. Preservation of the joint space. No sclerotic or destructive changes observed. SOFT TISSUES: No significant abnormality. No soft tissue swelling or gas. No radiopaque foreign body. RAD/Knee 4 or More Views IMPRESSION: Degenerative changes. No acute osseous findings. Electronically Signed: Haresh Ponce DO at 20:50 EDT ,
--- NOTE | 2023-08-18 19:16 | RAD_ITS ---
EXAM: XR RIGHT KNEE COMPLETE, 4 OR MORE VIEWS CLINICAL INDICATION: pain TECHNIQUE: Four or more views of the right knee. COMPARISON: No relevant prior studies available. FINDINGS: BONES/JOINTS: Marginal osteophytes in the weightbearing and patellofemoral compartments. Patellofemoral enthesopathy. Trace joint effusion. No acute fracture. No subluxation. Normal alignment. No sclerotic or destructive changes observed. SOFT TISSUES: No significant abnormality. No soft tissue swelling or gas. No radiopaque foreign body. RAD/Knee 4 or More Views IMPRESSION: Trace joint effusion. No acute fracture. Degenerative changes. Electronically Signed: Haresh Ponce DO at 20:49 EDT ,
[2023-08-18] MEDS: traMADol 50 MG Tablet PO (19:21)
--- NOTE | 2023-08-18 19:55 | CT_ITS ---
EXAM: CT HEAD AND CERVICAL SPINE WITHOUT INTRAVENOUS CONTRAST CLINICAL INDICATION: FALL , pain. TECHNIQUE: Helically acquired images were obtained of the head/brain and cervical spine without intravenous contrast. 2D reformatted images were reviewed. This CT exam was performed using one or more of the following dose reduction techniques: automated exposure control, adjustment of the mA and/or kV according to patient size, and/or use of iterative reconstruction technique. COMPARISON: Cervical spine radiographs, 07/14/2023 FINDINGS: BRAIN AND EXTRA-AXIAL SPACES: No significant abnormality. No intra- or extra-axial hemorrhage. No evidence of acute infarct. No intracranial mass or mass effect. There is preservation of the shafer/white matter interface. Posterior fossa structures are unremarkable. Ventricles are appropriate for age. No hydrocephalus. Basal cisterns are patent. SKULL: No significant abnormality. No discrete lytic or blastic abnormalities. SINUSES: No significant findings. MASTOID AIR CELLS: No significant abnormality. Clear. VERTEBRAE: No significant abnormality. No fracture. No traumatic subluxation. No discrete lytic or blastic abnormality. Normal alignment. Degenerative changes at the craniocervical junction and C1-C2 articulations. DISCS/SPINAL CANAL/NEURAL FORAMINA: No significant abnormality. Disc heights are preserved. No critical stenosis. SOFT TISSUES: No significant abnormality. No prevertebral soft tissue swelling. LYMPH NODES: No significant abnormality. No cervical adenopathy. LUNG APICES: Normal as visualized. Clear. CT/Spine Cervical without Contras IMPRESSION: No acute abnormality in the head or cervical spine. Electronically Signed: Haresh Ponce DO at 20:22 EDT ,
--- NOTE | 2023-08-18 19:55 | CT_ITS ---
EXAM: CT HEAD AND CERVICAL SPINE WITHOUT INTRAVENOUS CONTRAST CLINICAL INDICATION: FALL , pain. TECHNIQUE: Helically acquired images were obtained of the head/brain and cervical spine without intravenous contrast. 2D reformatted images were reviewed. This CT exam was performed using one or more of the following dose reduction techniques: automated exposure control, adjustment of the mA and/or kV according to patient size, and/or use of iterative reconstruction technique. COMPARISON: Cervical spine radiographs, 07/14/2023 FINDINGS: BRAIN AND EXTRA-AXIAL SPACES: No significant abnormality. No intra- or extra-axial hemorrhage. No evidence of acute infarct. No intracranial mass or mass effect. There is preservation of the shafer/white matter interface. Posterior fossa structures are unremarkable. Ventricles are appropriate for age. No hydrocephalus. Basal cisterns are patent. SKULL: No significant abnormality. No discrete lytic or blastic abnormalities. SINUSES: No significant findings. MASTOID AIR CELLS: No significant abnormality. Clear. VERTEBRAE: No significant abnormality. No fracture. No traumatic subluxation. No discrete lytic or blastic abnormality. Normal alignment. Degenerative changes at the craniocervical junction and C1-C2 articulations. DISCS/SPINAL CANAL/NEURAL FORAMINA: No significant abnormality. Disc heights are preserved. No critical stenosis. SOFT TISSUES: No significant abnormality. No prevertebral soft tissue swelling. LYMPH NODES: No significant abnormality. No cervical adenopathy. LUNG APICES: Normal as visualized. Clear. CT/Brain/Head without Contrast IMPRESSION: No acute abnormality in the head or cervical spine. Electronically Signed: Haresh Ponce DO at 20:22 EDT ,
--- NOTE | 2023-08-18 20:05 | RAD_ITS ---
EXAM: XR RIGHT CLAVICLE COMPLETE, 2 OR MORE VIEWS CLINICAL INDICATION: pain TECHNIQUE: Frontal and lordotic views of the right clavicle. COMPARISON: 07/14/2023 FINDINGS: BONES/JOINTS: Glenohumeral and acromioclavicular joint arthrosis. No acute fracture. No subluxation. Normal alignment. No sclerotic or destructive changes observed. SOFT TISSUES: No significant abnormality. No soft tissue swelling or gas. No radiopaque foreign body. RAD/Clavicle IMPRESSION: Glenohumeral and acromioclavicular joint arthrosis. No acute osseous abnormality. Electronically Signed: Haresh Ponce DO at 20:48 EDT ,
[2023-08-18 22:28] VITALS: BP 148/81; PULSE 56; RESP 18; TEMP 36.8; O2SAT 96
--- NOTE | 2023-08-18 23:33 | EDS_ITS ---
HPI HPI - Fall History of Present Illness Chief Complaint: Fall Narrative Narrative: 48-year-old female presenting after a fall. She states she was walking on a 45 degree decline and fell. With her hands out and fell on her knees. She thinks he might hit her head and hit her head backwards. She has a headache, neck pain, right-sided shoulder pain. She also complains of bilateral knee pain. Patient is ambulatory on scene and in the ER. [facility] Medical History Anxiety and depression Arthritis Endometriosis Fibromyalgia Hypertension Normal colonoscopy Pain management PCOS (polycystic ovarian syndrome) Home Medications baclofen 10 mg tablet 10 mg PO TID 03/31/17 [History Last Taken Unknown] levonorgestrel 21 mcg/24 hours (8 yrs) 52 mg intrauterine device (Mirena) 1 insert intrauterine ONCE 11/13/17 [History Last Taken Unknown] meloxicam 15 mg tablet 15 mg PO DAILY 05/18/18 [History Last Taken Unknown] pregabalin 100 mg capsule 150 mg PO TID 03/17/19 [History Last Taken Unknown] cholecalciferol (vitamin D3) 50 mcg (2,000 unit) capsule 50 mcg PO DAILY #90 caps 03/28/20 [Rx Last Taken Unknown] blood pressure monitor #1 ea 08/25/20 [Rx Last Taken Unknown] handicap placard See Rx Instructions .Route .COMPLEX #1 unit 08/25/20 [Rx Last Taken Unknown] duloxetine 60 mg capsule,delayed release (Cymbalta) 120 mg (2 x 60 mg) PO DAILY #180 caps 02/08/21 [Rx Last Taken Unknown] rizatriptan 10 mg tablet See Rx Instructions .Route .COMPLEX #20 ea 02/08/21 [Rx Last Taken Unknown] albuterol sulfate 90 mcg/actuation aerosol inhaler (ProAir HFA) 1 - 2 puff inhalation Q6H PRN shortness of breath or wheezing #8.5 grams 03/23/21 [Rx Last Taken Unknown] buspirone 5 mg tablet 5 mg PO BID 07/09/21 [History Last Taken Unknown] calcium carbonate 333 mg-magnesium oxide 133 mg-zinc gluc 5 mg tablet tab PO 07/09/21 [History Last Taken Unknown] ibuprofen 200 mg capsule 200 mg PO Q6H PRN 07/09/21 [History Last Taken Unknown] melatonin 10 mg capsule 20 mg PO HS PRN 07/09/21 [History Last Taken Unknown] metformin 500 mg tablet 500 mg PO DAILY 07/09/21 [History Last Taken Unknown] prazosin 1 mg capsule 2 mg PO QHS 07/09/21 [History Last Taken Unknown] topiramate 25 mg tablet 25 mg PO 07/09/21 [History Last Taken Unknown] trazodone 100 mg tablet 300 mg (3 x 100 mg) PO DAILY #90 tabs 07/18/21 [Rx Last Taken Unknown] hydroxyzine pamoate 25 mg capsule (Vistaril) 25 mg PO QHS 08/13/21 [History Last Taken Unknown] norethindrone (contraceptive) 0.35 mg tablet (Ortho Micronor) 0.35 mg PO DAILY #28 tabs 08/13/21 [Rx Last Taken Unknown] aripiprazole 2 mg tablet tablet PO 01/29/22 [History Last Taken Unknown] ascorbic acid (vitamin C) 1,000 mg tablet 1 g PO Q6H 01/29/22 [History Last Taken Unknown] buspirone 7.5 mg tablet 7.5 mg PO 01/29/22 [History Last Taken Unknown] chlorhexidine gluconate 4 % topical liquid (Betasept Surgical Scrub) ml topical 01/29/22 [History Last Taken Unknown] cholecalciferol (vitamin D3) 1,250 mcg (50,000 unit) capsule 50,000 unit PO 01/29/22 [History Last Taken Unknown] coenzyme Q10 50 mg capsule (Co Q-10) 50 mg PO DAILY 01/29/22 [History Last Taken Unknown] dicyclomine 10 mg capsule cap PO 01/29/22 [History Last Taken Unknown] hydrocodone-acetaminophen 5-325mg 5mg-325mg ea PO 01/29/22 [History Last Taken Unknown] hydroxyzine pamoate 50 mg capsule 50 mg PO 01/29/22 [History Last Taken Unknown] modafinil 200 mg tablet 200 mg PO 01/29/22 [History Last Taken Unknown] pregabalin 150 mg capsule 150 mg PO 01/29/22 [History Last Taken Unknown] topiramate 100 mg tablet 100 mg PO 01/29/22 [History Last Taken Unknown] ubidecarenone-omega 3-vit E 25 mg-150 (90-60) mg-200 unit capsule (Co [id number] E-Fish Oil) 1 cap PO DAILY 01/29/22 [History Last Taken Unknown] losartan 50 mg tablet 50 mg PO QDAY #90 tabs 02/08/22 [Rx Last Taken Unknown] tramadol 50 mg tablet 50 mg PO Q6H PRN pain #10 tabs 08/18/23 [Rx Last Taken Unknown] Allergy/AdvReac Type Severity Reaction Status Date / Time No Known Allergies Allergy Verified 01/29/22 15:07 Family History Uncle Diabetes Aunt Diabetes Other Anxiety Depression Hormone deficiency Hypertension Melanoma Mental disorder Myocardial infarction Psychiatric care Skin cancer Surgical History H/O laparoscopy History of cholecystectomy History of ERCP Status post hysteroscopy Social History household members: significant other current occupational status: disabled Smoking Status: Never smoker second hand exposure: No alcohol intake: never substance use type: does not use diet: low carbohydrate caffeine: No what type of physical activity do you participate in: none seatbelt use: always do you feel safe at home: Yes additional social history: single ROS ROS ED Constitutional Constitutional ED: Denies chills, fever(s) or sweats Eyes Eyes: Denies blurry vision or change in vision ENT ENT ED: Denies ear pain or sore throat Cardiovascular Cardiovascular: Denies chest pain, palpitations or racing heartbeat Respiratory/Chest Respiratory/Chest: Denies cough, dyspnea or sputum Gastrointestinal Gastrointestinal: Denies abdominal pain, constipation, diarrhea, nausea or vomiting Genitourinary Genitourinary ED: Denies dysuria, hematuria or urinary frequency Musculoskeletal Musculoskeletal: Reports neck pain and other Details: Right shoulder pain, bilateral knee pain, right ankle pain ; Denies arthralgias or myalgias Integumentary Denies abscess, Abrasions or rash Neurologic Neurologic: Reports headache(s); Denies paresthesias or weakness Psychiatric Psychiatric: Denies anxiety, depression, suicidal ideation or suicidal thoughts Endocrine Endocrinology: Denies polydipsia or polyuria EXAM Physical Exam Const Vital Signs: 08/18/23 18:39 08/18/23 18:48 08/18/23 22:28 Temperature 97.8 F 98.2 F Temperature Source Temporal Pulse Rate 81 56 L Respiratory Rate 22 H 18 Respiratory Effort Normal Non-Labored Respiratory Depth Normal Respiratory Pattern Normal Blood Pressure 133/103 H 148/81 H Blood Pressure Mean 113 103 Pulse Ox 96 96 Oxygen Delivery Method Room Air Positive well nourished General Appearance ED: NAD CAT Reports normocephalic and TM's normal bilaterally atraumatic Eyes PERRL and EOMs intact bilaterally Chest Wall inspection of chest normal Resp normal respiratory effort and no retractions Auscultation: Negative for rales, rhonchi or wheezes Cardio regular rate and regular rhythm Back/Spine Back/Spine Narrative: There is no midline cervical spinal tenderness, deformity, step-off however she does have pain bilaterally in cervical musculature. This is greater on the right side. Extremity Extremity Narrative: There is tenderness to palpation of the bilateral knees. There is more bruising on the right patella. Extensor mechanism is intact bilaterally. No other signs of trauma to the knees. No ligamentous laxity. The right ankle is tender to palpation on the medial and lateral malleolus. There is mild bruising. Right foot nontender to palpation. Right shoulder exam is normal as far as the right shoulder girdle although she has some pain over the distal aspect of the right clavicle without deformity. There is no crepitance or bruising. Equal symmetric breath sounds and chest wall rise. Neuro oriented x3 and CN's II-XII intact bilaterally [place] Coma Scale: document GCS findings Spontaneous Obeys Commands Oriented 15 Sensorium / Orientation: alert MDM MDM MDM Narrative Medical decision making narrative: Patient presenting after clinical fall. She did injure both her knees and her right ankle and x-rays of the right ankle, bilateral knees on my interpretation show no acute fractures or subluxation. I did also x-ray her right clavicle which is also negative. Patient was medicated with tramadol at her request she states ibuprofen and Tylenol do not help. CT brain and cervical spine was negative for acute findings. She continued to have headache she was given Tylenol. After discussing her negative workup I did provide her with an Aircast and Dwayne wrap. She request crutches for home to help her ambulate. I recommended Tylenol and ibuprofen for pain at home. Impression: 1. Closed head injury 2. Mechanical fall 3. Bilateral knee contusions 4. Right ankle sprain 5. Right shoulder strain Radiography Diagnostic Testing: Clinical Impression(s) from Imaging Studies Ankle X-Ray 08/18/23 19:15 IMPRESSION: Soft tissue swelling at the ankle. No evidence of an acute fracture or dislocation. Electronically Signed: Haresh Ponce DO at 20:47 EDT , Knee X-Ray 08/18/23 19:15 IMPRESSION: Degenerative changes. No acute osseous findings. Electronically Signed: Haresh Ponce DO at 20:50 EDT , Pelvis X-Ray 08/18/23 19:15 IMPRESSION: Mild degenerative changes in the lower lumbar spine and mild to moderate degenerative changes of the bilateral hips. No acute osseous findings. Electronically Signed: Haresh Ponce DO at 20:48 EDT , Knee X-Ray 08/18/23 19:16 IMPRESSION: Trace joint effusion. No acute fracture. Degenerative changes. Electronically Signed: Haresh Ponce DO at 20:49 EDT , Brain CT 08/18/23 19:55 IMPRESSION: No acute abnormality in the head or cervical spine. Electronically Signed: Haresh Ponce DO at 20:22 EDT , Cervical Spine CT 08/18/23 19:55 IMPRESSION: No acute abnormality in the head or cervical spine. Electronically Signed: Haresh Miller Samuelbrittniaron at 20:22 EDT , Clavicle X-Ray 08/18/23 20:05 IMPRESSION: Glenohumeral and acromioclavicular joint arthrosis. No acute osseous abnormality. Electronically Signed: Haresh VKoby Ponce at 20:48 EDT , Discharge Plan Triage Chief Complaint: Fall ED Provider: Shaggy Garcia Dx/Rx/DC Orders Instructions: ED Contusion, Lower Extremity, ED Contusion, Upper Extremity, ED Ankle Sprain (Adult), ED Fall Prevention Prescriptions: New tramadol 50 mg tablet 50 mg PO Q6H PRN (Reason: pain) Qty: 10 0RF No Action baclofen 10 mg tablet 10 mg PO TID levonorgestrel [Mirena] 20 mcg/24 hr (5 years) intrauterine device 1 insert Intrauterine ONCE meloxicam 15 mg tablet 15 mg PO DAILY cholecalciferol (vitamin D3) 50 mcg (2,000 unit) capsule 50 mcg PO DAILY Qty: 90 3RF handicap placard See Rx Instructions .ROUTE .COMPLEX Qty: 1 0RF Rx Instructions: Duration 5 years for reduced mobility (DME) blood pressure monitor Kit See Rx Instructions .ROUTE .MEDSUPPLY Qty: 1 0RF Rx Instructions: As directed topiramate 25 mg tablet 25 mg PO Patient Comments: Take 1 tablet at bedtime for 1 week. If headaches persist and no side effects can increase to 2 tabs at bedtime, and if headaches persist 1 prazosin 1 mg capsule 2 mg PO QHS metformin 500 mg tablet 500 mg PO DAILY buspirone 5 mg tablet 5 mg PO BID melatonin 10 mg capsule 20 mg PO HS PRN ibuprofen 200 mg capsule 200 mg PO Q6H PRN calcium carb-mag ox-zinc gluc 333-133-5 mg tablet PO hydroxyzine pamoate [Vistaril] 25 mg capsule 25 mg PO QHS norethindrone (contraceptive) [Ortho Micronor] 0.35 mg tablet 0.35 mg PO DAILY Qty: 28 12RF Rx Instructions: start day 1 of menstrual cycle buspirone 7.5 mg tablet 7.5 mg PO Patient Comments: take one tablet by mouth twice a day cholecalciferol (vitamin D3) 1,250 mcg (50,000 unit) capsule 50,000 unit PO Patient Comments: TAKE 1 CAPSULE BY MOUTH EVERY WEEK hydrocodone-acetaminophen 5-325 mg tablet PO Patient Comments: Take; 1 tablet BY MOUTH daily to TWICE DAILY as needed for pain dicyclomine 10 mg capsule PO ascorbic acid (vitamin C) 1,000 mg tablet 1 g PO Q6H Co [id number] E-Fish Oil 25-150-200 mg-mg-unit capsule 1 cap PO DAILY coenzyme Q10 [Co Q-10] 50 mg capsule 50 mg PO DAILY chlorhexidine gluconate [Betasept Surgical Scrub] 4 % liquid topical Patient Comments: Apply to affected area daily, external use only modafinil 200 mg tablet 200 mg PO aripiprazole 2 mg tablet PO topiramate 100 mg tablet 100 mg PO Patient Comments: TAKE 1 TABLET BY MOUTH AT BEDTIME pregabalin 150 mg capsule 150 mg PO hydroxyzine pamoate 50 mg capsule 50 mg PO Patient Comments: TAKE 2 CAPSULES BY MOUTH TWICE DAILY NEEDED FOR ANXIETY OR FOR INSOMNIA pregabalin 100 mg capsule 150 mg PO TID duloxetine [Cymbalta] 60 mg capsule,delayed release(DR/EC) 120 mg PO DAILY Qty: 180 3RF rizatriptan 10 mg tablet See Rx Instructions .ROUTE .COMPLEX Qty: 20 2RF Dose Instruction: TAKE 1 TABLET TWICE DAILY NEEDED for migraines. Rx Instructions: TAKE 1 TABLET TWICE DAILY NEEDED for migraines. albuterol sulfate [ProAir HFA] 90 mcg/actuation HFA aerosol inhaler 1 - 2 puff INHALATION Q6H PRN (Reason: shortness of breath or wheezing) Qty: 8.5 1RF trazodone 100 mg tablet 300 mg PO DAILY Qty: 90 1RF losartan 50 mg tablet 50 mg PO QDAY Qty: 90 1RF Primary Care Provider: Medical Sherry Contreras Referrals: [facility],Sherry White [Primary Care Provider] - Disposition Disposition: Home, Self Care Discharge Date/Time: 08/18/23 22:21
== END 2023-08-18 22:21 | disposition home or self-care (01) ==
PROVIDERS: Emergency Provider Student in an Organized Health Care Education/Training Program; Visit Provider Student in an Organized Health Care Education/Training Program
DX: S09.90XA Unspecified injury of head, initial encounter (principal); S93.401A Sprain of unspecified ligament of right ankle, initial encounter; S80.01XA Contusion of right knee, initial encounter; S80.02XA Contusion of left knee, initial encounter; I10 Essential (primary) hypertension; Z79.899 Other long term (current) drug therapy; R51.9 Headache, unspecified; S43.401A Unspecified sprain of right shoulder joint, initial encounter; W01.0XXA Fall on same level from slipping, tripping and stumbling without subsequent striking against object, initial encounter
CPT/HCPCS: 70450; 72125; 72170; 73000; 73564; 73610; 99283

== ENCOUNTER → 2024-06-30 | Outpatient (CLI) | payer MEDICARE, MEDICAID, SELFPAY | END | disposition home or self-care (01) | LOC: LAB 16:13 | PROVIDERS: PCP Nurse Practitioner Family; Referring Provider Anesthesiology; Visit Provider Anesthesiology | DX: F13.20 Sedative, hypnotic or anxiolytic dependence, uncomplicated (principal); Z13.1 Encounter for screening for diabetes mellitus; I10 Essential (primary) hypertension; E28.2 Polycystic ovarian syndrome ==